=== PATIENT | male | born 1960 | race Caucasian/White ===

== ENCOUNTER 2022-05-31 00:34 | Day surgery (SDC) | payer MEDICARE, SELFPAY ==
[2022-05-24 15:10] VITALS: BMI 30.5
--- NOTE | 2022-05-24 15:27 | PC.NURSE ---
Report to the Outpatient Waiting Room, entrance under the green pavilion located off [facility], at time 0930 on date 05/31/22. Planned Procedure Time: 1130. Time changes happen often and if your time is changed the preop area will call you the afternoon before. - You and your visitor will be asked to self-screen and do not enter if you have any COVID symptoms. - Only one visitor is requested with a max of two and NO children visitors are allowed at this time. - The patient visitor may be requested to leave or wait in car when not with patient due to distancing restrictions. - A mask is optional within the hospital at this time. Patients may have clear liquids (water, carbonated beverages, clear teas, apple juice) until 3 hours prior to surgery with a maximum of 20 ounces. - No food from midnight until time of surgery Take the following medications with a SIP of water the morning of surgery: GABAPENTIN, PAIN PILL, METOPROLOL, TIZANIDINE DO NOT STOP ANY OF YOUR OTHER PRESCRIPTION MEDICATIONS PRIOR TO SURGERY EXCEPT THE FOLLOWING Medications to discontinue per physician: DICKQUGERTRUDE Date to take last dose: PER DR. VEGA Please no make-up, nail emirati, hairspray, perfume, deodorant, or body powder the day of surgery. No jewelry (including any body piercings) or valuables the day of surgery, leave them at home. Please take a shower or bath the night before, or the morning of, surgery with an antibacterial soap. Wear comfortable, loose fitting clothing. - Jewelry must be removed prior to entering the operating room. Rings and piercings that are not removed may be cut off. - The hospital will not accept responsibility for valuables. - Please leave all valuables, including medications, at home the day of surgery. If you are going home after surgery, a licensed sulky driver must drive you home. - NO public transportation without another adult if you receive anesthesia. - We recommend that an adult stay with you for 24 hours following discharge. - We also recommend that you do not drive, make important decision, drink alcoholic beverages, or take any drugs that were not prescribed by your health care provider for at least 24 hours after your discharge time. Follow any additional instructions given to you from your surgeon. If you or anyone in your household have experienced Covid symptoms in the past week, please notify your surgeon or the nurse liaison at the phone number below for possible testing. Telephone instructions given to [facility] AGU[facility]A and asked if any additional questions and then verbalized understanding. Patient advised to call surgeon office or pre surgery nurse liaison [phone] if any additional questions.
[2022-05-31] VITALS (16 sets, daily range): BP systolic 114–147; BP diastolic 62–94; PULSE 16–102; RESP 12–20; TEMP 35.6–36.8; O2SAT 92–100
--- NOTE | ~2022-05-31 | XR_ITS ---
EXAMINATION: XR surgery orthopedic DATE: 05/31/2022 13:42 INDICATION: Back and left lower limb pain. TECHNIQUE: 2 intraoperative fluoroscopic views of the lumbar spine were obtained. I was not present. Fluoroscopy exposure time was 2 seconds. COMPARISON: None. FINDINGS: There are changes of anterior and posterior fusion procedures from L4 to S1 with interbody devices and pedicle screws. IMPRESSION: 1. Anterior and posterior fusion procedures from L4 to S1. Reviewed, dictated and finalized at location A. [employer]
[2022-05-31 10:40] LABS: Partial Thromboplastin Time 31.5 SECONDS (22.3-36.8)
[2022-05-31] MEDS: LACTATED RINGERS 1,000 ML 30 ML IV CONT ×2 (10:40→13:17)
[2022-05-31] MEDS: HYDROmorphone HCL INJ (*CRX) 1 MG/ML SYR 0.5 MG IV PUSH ×2 (10:40→11:00)
--- NOTE | 2022-05-31 10:45 | P.PNAN_ITS ---
Anes - Initial Pre Proc Eval Procedure: Operation Date: 05/31/22 11:30 Proposed Procedures p Left L5-S1 Wound Exploration for Epidural Mass - Amandeep Faye MD Date/Time: 05/31/22 10:45 Surgeon: Amandeep Faye MD Pre Op Diagnosis: epidural mass Patient Data Age: 62 Gender: M Height: 1.83 m Weight: 102.06 kg Allergies Allergy/AdvReac Type Severity Reaction Status Date / Time codeine AdvReac Vomiting Verified 05/24/22 15:06 Home Medications Medication Instructions Recorded Confirmed Type apixaban 5 mg tablet (Eliquis) 5 mg PO BID 05/24/22 05/24/22 History escitalopram oxalate 20 mg tablet 20 mg PO HS 05/24/22 05/24/22 History gabapentin 300 mg capsule 300 mg PO TID 05/24/22 05/24/22 History hydrocodone 5 mg-acetaminophen 325 1 tablet PO Q6H PRN Pain 05/24/22 05/24/22 History mg tablet metoprolol succinate 50 mg 50 mg PO DAILY 05/24/22 05/24/22 History tablet,extended release 24 hr omeprazole 40 mg capsule,delayed 40 mg PO DAILY 05/24/22 05/24/22 History release rosuvastatin 40 mg tablet 40 mg PO HS 05/24/22 05/24/22 History tizanidine 4 mg tablet 4 mg PO BID 05/24/22 05/24/22 History Laboratory Tests 05/31/22 10:05 PT 13.0 Seconds Seconds (11.1-14.7) INR 1.0 APTT 31.5 SECONDS SECONDS (22.3-36.8) Patient hx anesthesia problems: none Family hx anesthesia problems: none Results Review: All pre-operative results and documents have been reviewed as part of the pre- operative evaluation. [facility] Past Medical History Medical History (Updated 05/31/22 @ 10:46 by Derke Radford MD) Chronic a-fib cardioversion 2020 Chronic back pain CVA (cerebral vascular accident) HTN (hypertension) Obesity AVERY (obstructive sleep apnea) Surgical History Surgical History (Updated 05/31/22 @ 10:46 by Derek Radford MD) History of lumbar fusion History of lumbar surgery Social History Social History Smoking packs per day: 1 Smoking cigarettes per day: 20.0 Years smoked: 30 Smoking pack-years: 30.00 Smoking status: Former smoker Tobacco type: cigarettes Smoking end date: 04/29/13 Alcohol intake: never Substance use: current Substance use type: marijuana Living arrangements: with family Spiritual care concerns: No Anes - Eval Final PreProcedure Day of Procedure 05/31/22 10:45 Patient weight: obese Heart: regular rate and rhythm Lungs: clear to auscultation Airway: Mallampati scale class 1 Neurological: alert and oriented Last oral intake: >/= 8 hours ASA classification: III Emergent: no Anesthetic plan: proceed Anesthesia type and monitoring: general ETT and standard monitoring Results Review: All pre-operative results and documents have been reviewed as part of the pre-operative evaluation. Informed Consent: The patient's anesthetic plan and its attendant risks and benefits were discussed with the patient/family/POA. Questions were solicited and answers provided to the satisfaction of the patient/family/POA.
--- NOTE | 2022-05-31 11:04 | PM.IMHP ---
H&P: HPI History of Present Illness Date/Time: 05/31/22 11:04 Chief Complaint: Back and leg pain, left leg Narrative: ibeth is a 62-year-old gentleman almost 2 months ago underwent an L5-S1 posterior lumbar interbody fusion. Soon after he started to developed left lower extremity discomfort. On imaging he was discovered to have an epidural mass on the bone or at least has the same imaging characteristics, possibly morselized autograft extruded from the disc space. He presents now for wound exploration to remove this mass and relief compression on the nerve root. He does not have specific muscle group weakness. He is not having bowel or bladder difficulty. He has not changed since we last saw him. Review of Systems Review of Systems: Patient denies shortness of breath, cough, fever, chills, nausea, vomiting, weight loss, weight gain, chest pain, dysuria. He has back and leg pain as above. His review of systems otherwise negative except as noted elsewhere. [facility] Past Medical History Medical History Chronic a-fib cardioversion 2020 Chronic back pain CVA (cerebral vascular accident) HTN (hypertension) Obesity AVERY (obstructive sleep apnea) Surgical History Surgical History History of lumbar fusion History of lumbar surgery Social History Social History Smoking packs per day: 1 Smoking cigarettes per day: 20.0 Years smoked: 30 Smoking pack-years: 30.00 Smoking status: Former smoker Tobacco type: cigarettes Smoking end date: 04/29/13 Alcohol intake: never Substance use: current Substance use type: marijuana Living arrangements: with family Spiritual care concerns: No Meds Home Medications and Allergies Home Medications Medication Instructions Recorded Confirmed Type apixaban 5 mg tablet (Eliquis) 5 mg PO BID 05/24/22 05/31/22 History escitalopram oxalate 20 mg tablet 20 mg PO HS 05/24/22 05/24/22 History gabapentin 300 mg capsule 300 mg PO TID 05/24/22 05/31/22 History hydrocodone 5 mg-acetaminophen 325 1 tablet PO Q6H PRN Pain 05/24/22 05/31/22 History mg tablet metoprolol succinate 50 mg 50 mg PO DAILY 05/24/22 05/31/22 History tablet,extended release 24 hr omeprazole 40 mg capsule,delayed 40 mg PO DAILY 05/24/22 05/31/22 History release rosuvastatin 40 mg tablet 40 mg PO HS 05/24/22 05/24/22 History tizanidine 4 mg tablet 4 mg PO BID 05/24/22 05/31/22 History Allergies Allergy/AdvReac Type Severity Reaction Status Date / Time codeine AdvReac Vomiting Verified 05/31/22 10:59 Exam Narrative: The patient is a normally developed, normal appearing male supine in the hospital bed in mild distress. He is awake, alert, oriented x3, with good fund of knowledge, recall events and fluent speech. His face is symmetrical, tongue is midline, his pupils are equal reactive to light, his extraocular movements are intact without diplopia or nystagmus. He has no upper extremity drift, dysmetria or dyspraxia. Strength is 5/5 in all muscle groups of the bilateral lower extremities Sensation is intact to light touch throughout the lower extremities. His breathing is nonlabored. He speaks in complete sentences without difficulty. Regular rate rhythm Assessment and Plan Assessment and plan (1) Lumbar epidural mass: Code(s): G95.89 - Other specified diseases of spinal cord Status: Acute Plan ibeth is a 62-year-old gentleman with an epidural mass in the area former operation which may be morselized bone and has those imaging characteristics. He presents now for wound exploration to remove the mass. I described to him that operation, its risks, potential benefits, the operative and postoperative course in detail and answered all questions personally. He indicates understanding
--- NOTE | 2022-05-31 11:09 | WPDHPUPDATE1 ---
History and Physical Update Update Date/Time: 05/31/22 11:09 History and Physical has been reviewed, including an updated exam of the patient. There are NO changes in the patient's condition. Risks, benefits, and alternatives have been discussed and questions answered. Patient agrees to proceed with procedure.
[2022-05-31] MEDS: ceFAZolin 2 GM/D5W 50 ML 2 GM/50 ML BAG IVPB (11:38)
[2022-05-31] MEDS: LIDO 1%/EPINEPHRINE 1:100,000 20 ML VIAL 10 ML INFILTRATE (12:29)
[2022-05-31] MEDS: fentaNYL CITRATE INJ (*CRX) 100 MCG/2 ML VIAL 25 MCG IV PUSH ×8 (13:30→15:36)
--- NOTE | 2022-05-31 15:45 | PC.NURSE ---
This patient, Geo Gilbert, was admitted to Medical Room 243-. Patient/family oriented to hospital policies and general routines including ID bracelet, bed and alarms, visiting hours, pain management, procedures, bathroom and other care routines, personal items, smoking policy, room service/diet, and visiting hours. Information on how to activate the Rapid Response Team has been discussed. Patient/Family are encouraged to report perceived risks to care and to ask questions if they do not understand what they are told or what they should do.
--- NOTE | 2022-05-31 16:45 | PC.NURSE ---
Patient has a listed allergy to codeine. Provider ordered Hydrocodone-acetaminophen for pain relief. Clarified with patient about allergy and patient stated he takes hydrocodone-acetaminophen for pain at home. Patient instructed to notify RN of any allergic reactions.
[2022-05-31] MEDS: HYDROcodone/acetaminophen (*CRX) 10-325 MG TABLET 1 TAB PO ×2 (16:48→20:54)
[2022-05-31] MEDS: KCL 20 MEQ/D5/0.45% SOD CHL 1,000 ML 100 ML IV CONT (16:49)
[2022-05-31] MEDS: MORPHINE SULFATE (*CRX) 2 MG/ML INJ IV PUSH (19:56)
[2022-05-31] MEDS: DOCUSATE SODIUM 100 MG CAPSULE PO (20:01)
[2022-06-01] MEDS: diazePAM (*CRX) 5 MG TABLET PO (02:13)
[2022-06-01 02:30] VITALS: BP 124/61; PULSE 70; RESP 21; TEMP 35.9; O2SAT 100
[2022-06-01] MEDS: HYDROcodone/acetaminophen (*CRX) 10-325 MG TABLET 1 TAB PO ×2 (05:22→09:29)
[2022-06-01 06:58] VITALS: BP 127/69; PULSE 81; RESP 21; TEMP 36.8; O2SAT 100
[2022-06-01 08:21] VITALS: RESP 20; O2SAT 100
[2022-06-01] MEDS: DOCUSATE SODIUM 100 MG CAPSULE PO (08:21)
--- NOTE | 2022-06-01 08:47 | WPDNEUROSGPN ---
Progress Note: A&P Assessment and Plan (1) Lumbar epidural mass: Code(s): G95.89 - Other specified diseases of spinal cord Status: Acute Plan Patient doing well post lumbar decompression with recurrent disc Pain controlled Mobilize today Anticipate d/c later today Time Spent With Patient Time with patient: 15 - 25 minutes Subjective Date/time seen: 06/01/22 08:47 Interval history: patient notes improved lower extremity pain Exam Narrative: AWake, alert oriented x 3 Speech CF IRENE EOMI Face= TML MAEW with good strength Dressing CDI Objective Data Vital Signs Vital Signs: Vital Signs - 24 hr 05/31/22 10:00 05/31/22 13:27 05/31/22 13:30 Temperature 98.1 F 97.5 F L Pulse Rate 62 16 L 102 H Respiratory Rate 16 16 18 Blood Pressure 128/69 145/94 H 132/74 Pulse Oximetry 98 100 99 Oxygen Delivery Room Air Simple Face Mask Room Air Oxygen Flow Rate 8 05/31/22 13:45 05/31/22 13:45 05/31/22 14:00 Temperature Pulse Rate 101 H 98 101 H Respiratory Rate 12 14 15 Blood Pressure 126/84 138/94 H 131/67 Pulse Oximetry 95 95 92 Oxygen Delivery Room Air Room Air Room Air Oxygen Flow Rate 05/31/22 14:15 05/31/22 14:30 05/31/22 15:00 Temperature Pulse Rate 96 95 90 Respiratory Rate 16 16 16 Blood Pressure 147/84 H 126/71 115/78 Pulse Oximetry 96 96 96 Oxygen Delivery Room Air Room Air Room Air Oxygen Flow Rate 05/31/22 15:15 05/31/22 15:31 05/31/22 16:07 Temperature 97.5 F L Pulse Rate 85 91 96 Respiratory Rate 13 13 13 Blood Pressure 119/62 127/75 119/76 Pulse Oximetry 94 94 93 Oxygen Delivery Room Air Room Air Oxygen Flow Rate 05/31/22 16:22 05/31/22 16:52 05/31/22 16:50 Temperature 98.3 F 98.2 F Pulse Rate 85 86 Respiratory Rate 14 14 Blood Pressure 114/67 120/70 Pulse Oximetry 94 94 Oxygen Delivery Room Air Oxygen Flow Rate 05/31/22 17:52 05/31/22 21:34 05/31/22 20:00 Temperature 97.6 F 96.1 F L Pulse Rate 88 98 98 Respiratory Rate 15 20 20 Blood Pressure 120/69 136/75 Pulse Oximetry 94 99 99 Oxygen Delivery Room Air Oxygen Flow Rate 06/01/22 02:30 06/01/22 06:58 06/01/22 07:52 Temperature 96.7 F L 98.2 F Pulse Rate 70 81 Respiratory Rate 21 H 21 H Blood Pressure 124/61 127/69 Pulse Oximetry 100 100 Oxygen Delivery Room Air Oxygen Flow Rate Intake/Output Intake/Output: Intake & Output 05/29/22 05/30/22 05/31/22 06/01/22 23:59 23:59 23:59 23:59 Intake Total 1990 700 Output Total 1550 1400 Balance 441 -700 Meds/Results Medications: Active Medications Generic Name Dose Route Start Last Admin Trade Name Freq PRN Reason Stop Dose Admin Hydrocodone Bitart/Acetaminophen 1 tab 05/31/22 16:12 Hydrocodone/Acetaminophen (*Crx) 5-325 Mg Tablet PO Q4H PRN Mild Pain (1-3) Hydrocodone Bitart/Acetaminophen 1 tab 05/31/22 16:12 06/01/22 05:22 Hydrocodone/Acetaminophen (*Crx) 10-325 Mg Tablet PO 1 tab Q4H PRN Administration Moderate Pain (4-6) Al Hydrox/Mg Hydrox/Simethicone 20 ml 05/31/22 16:12 Mag Hydrox/Al Hydrox/Simeth 30 Ml Udc PO Q4H PRN Indigestion/Heartburn Bisacodyl 10 mg 05/31/22 16:12 Bisacodyl 10 Mg Suppository RECTAL DAILY PRN Constipation Diazepam 5 mg 05/31/22 18:37 06/01/22 02:13 Diazepam (*Crx) 5 Mg Tablet PO 5 mg Q6HR PRN Administration muscle spasms Docusate Sodium 100 mg 05/31/22 21:00 06/01/22 08:21 Docusate Sodium 100 Mg Capsule PO 100 mg Q12HR ARAM Administration Morphine Sulfate 2 mg 05/31/22 16:12 05/31/22 19:56 Morphine Sulfate (*Crx) 2 Mg/Ml Inj IV PUSH 2 mg Q2H PRN Administration Pain Rated 7-10 Ondansetron HCl 4 mg 05/31/22 16:12 Ondansetron Inj 4 Mg/2 Ml Vial IV PUSH Q8H PRN Nausea And Vomiting Senna/Docusate Sodium 1 tab 02/02/23 16:12 Senna/Docusate Sodium Tablet PO HS PRN Constipation Radiology Results: ITS Impres
[2022-06-01 10:00] VITALS: BP 141/75; PULSE 93; RESP 18; TEMP 36.6; O2SAT 98
--- NOTE | 2022-06-01 10:24 | W.PM.PROC2 ---
Procedure Note - Detailed Date of Procedure 06/04/22 Pre-op Diagnosis epidural mass Post-op Diagnosis Other ( Right L4-5 far lateral herniated nucleus pulposus) Procedure Performed 1. Exploration of epidural space for mass. 2. Left L4-5 far lateral microscopic lumbar diskectomy. Surgeon Amandeep Faye MD [employer] [facility] Anesthesia General Indications Geo is a 62-year-old gentleman with left lower extremity pain down to the big toe which started a few days after surgery performed diffuse his lumbar spine. MRI seem to demonstrate an epidural mass that might be extruded bone graft. He presents now for exploration and decompression of anything that might be bothering the L5 nerve root. Description of Procedure Patient was brought to the operating room in the supine position, was sedated, intubated and placed under general anesthesia in routine fashion. Was then turned into the prone position on a Mike frame. The of operation on his back was examined, marked for incision, prepped and draped in routine sterile fashion. Incision was marked over the previous incision in the midline. This area was injected with 0.5% lidocaine with [id number] epinephrine. Intravenous antibiotics given prior to incision. Incision was made with a 10 blade scalpel down to the lumbodorsal fascia. Bovie cautery was used to come through the scar until the instrumentation was discovered on the left side. This was uncovered. Verifying x-rays obtained to verify the level of operation. The screws at L4-L5 were followed down to the lateral masses and to the epidural space. Careful dissection with curved curettes was performed. The nerve root was identified. The ventral epidural space was probed and palpated using an Cristobal curette and finally a [place]. Underneath the exiting nerve root, far into the foramen, a disc fragment was discovered. I Mosquera rongeur was used to remove it. Few other smaller pieces were also swept out from under the nerve using a [place] instrument and Mosquera rongeur. These maneuvers were performed until a dental instrument could be placed above and below the nerve root proximally and distally to confirm lack of compression. The ventral epidural space below the traversing S1 nerve root was also explored. Bone was discovered related to the spondylolisthesis but no significant compression on the traversing S1 nerve root. This was also confirmed by passing a [place] instrument above and below the nerve. The wound was then copiously irrigated with bacitracin irrigation all bleeding was stopped with bipolar and Bovie cautery and Gelfoam thrombin powder. Wound was then closed in layered fashion with 2-0 Vicryl interrupted sutures in the lumbodorsal fascia and Brian's layer. 3-0 Vicryl buried interrupted sutures were placed in the dermis and the skin was closed with a running 4-0 Monocryl subcuticular stitch and dressed with Dermabond and a Telfa and Tegaderm dressing. The patient was then allowed to wake up in the operating room and was taken to the recovery room in stable condition. There were no immediate complications of this operation all counts were reported correct in the case blood loss was 50 cc. The patient was neurologically at her baseline postoperatively. CPT codes: 15851 Estimated Blood Loss -50.0 Urine Output 1,400 Drains No Complications None Condition Stable Disposition PACU [facility] Billing Surgery - Charge Forward: Surgery Billing
== END 2022-06-01 10:35 | disposition home or self-care (01) ==
LOC: ANHSURGERY 09:22 → ANH2MED 16:17
PROVIDERS: Anesthesiology; Visit Provider Neurological Surgery
PROC: (CPT 63056; principal; 2022-05-31 11:30)
DX: M51.26 Other intervertebral disc displacement, lumbar region (principal); I10 Essential (primary) hypertension; G47.33 Obstructive sleep apnea (adult) (pediatric); Z86.73 Personal history of transient ischemic attack (TIA), and cerebral infarction without residual deficits; E66.9 Obesity, unspecified; Z68.31 Body mass index [BMI] 31.0-31.9, adult; Z87.891 Personal history of nicotine dependence; Z98.1 Arthrodesis status; Z79.01 Long term (current) use of anticoagulants
CPT/HCPCS: 63056; 36415; 85610; 85730; 86850; 86900; 86901; 97161; 97165; 99199; A9270; J0330; J0690; J1100; J1170; J2250; J2270; J2370; J2405; J2704; J3010; J3480; J7120